=== PATIENT | female | born 1950 | race Caucasian/White ===

== ENCOUNTER 2022-10-14 15:48 | Emergency (ER) | payer MEDICARE ==
[~2022-10-14] VITALS: Ht 160 cm; Wt 97.7 kg
[~2022-10-14 15:48] MED LIST: BENADRYL ALLERG25 MG PO; NORCO 5-325 TA1 EACH PO; PREDNISONE5 MG PO; TYLENOL WITH C1 EACH PO; TYLENOL325 MG PO
[2022-10-14 18:22] VITALS: BP 174/91
--- NOTE | 2022-10-15 17:41 | EKG ---
[facility] [address] [place] [address] Signed Normal sinus rhythm Minimal voltage criteria for LVH, may be normal variant ( [place] product ) Borderline ECG When compared with ECG of 25-MAY-2016 10:09, No significant change was found Confirmed by OMID SHEARER MD ([id number]) on 10/15/2022 5:41:11 PM Electronically Signed By: OMID SHEARER MD 10/15/22 174 PATIENT NAME: CINDY MCGEEKASHIF Juarez Electrocardiogram DATE OF : 48 PHYSICIAN: OMID SHEARER MD REPORT #: [id number] REPORT IS CONFIDENTIAL AND NOT TO BE RELEASED WITHOUT AUTHORIZATION
== END 2022-10-14 18:25 | disposition home or self-care (01) ==
LOC: ED 15:48
DX: R07.89 Other chest pain (principal); J32.9 Chronic sinusitis, unspecified; Z88.0 Allergy status to penicillin; Z88.1 Allergy status to other antibiotic agents; Z91.011 Allergy to milk products; Z88.8 Allergy status to other drugs, medicaments and biological substances; Z91.048 Other nonmedicinal substance allergy status; Z79.899 Other long term (current) drug therapy
CPT/HCPCS: 36415; 70450; 71045; 80053; 84484; 85025; 85610; 93005; 93010; J2250; J3010